=== PATIENT | male | born 1980 | race Caucasian/White ===

== ENCOUNTER 2022-06-16 16:51 | Inpatient (IN) | payer OTHER ==
[~2022-06-16] VITALS: Ht 167.6 cm; Wt 122.3 kg
[2022-06-16] MEDS ORDERED: SODIUM CHLORIDE 0.9% 1,000 ML IV ONE ×2 (17:30→19:15)
[2022-06-16 18:03] LABS: BASOPHILS % 1.1 % (0.0-2.0); EOSINOPHILS % 1.4 % (0.0-5.0); HEMATOCRIT. 43.9 % (42.0-52.0); HEMOGLOBIN. 15.2 g/dL (14.0-18.0); LYMPHOCYTES % 10.4 % (20.0-50.0); MEAN CORPUSCULAR HEMOGLOBIN 35.6 pg (28.0-32.0); MEAN CORPUSCULAR VOLUME 103.1 fL (80.0-94.0); NEUTROPHILS % 75.1 % (40.0-76.0); RED BLOOD CELL COUNT 4.26 mill/uL (4.7-6.1); RED CELL DISTRIBUTION WIDTH 14.6 % (11.6-14.6)
[2022-06-16 18:08] LABS: CHLORIDE 99 mEq/L (98-107)
[2022-06-16 18:18] LABS: ETHANOL BLOOD < 10 mg/dL
[2022-06-16] MEDS ORDERED: PIPERACILLIN/TAZ 3.375G PREMIX 50 ML IV ONE (18:45)
[2022-06-16] MEDS ORDERED: VANCOMYCIN 1G PREMIX 200 ML IV ONE (18:45)
[2022-06-16 19:04] LABS: CLARITY URINE CLEAR (CLEAR); COLOR URINE DARK YELLOW (YELLOW); KETONES URINE NEGATIVE (NEGATIVE); LEUKOCYTE ESTERASE URINE TRACE (NEGATIVE); NITRITE URINE NEGATIVE (NEGATIVE); OCCULT BLOOD URINE NEGATIVE (NEGATIVE); PROTEIN URINE 1+ (NEGATIVE); SPECIFIC GRAVITY URINE 1.017 (1.005-1.030)
[2022-06-16 19:20] LABS: INR 1.6; PARTIAL THROMBOPLASTIN TIME 46.7 sec (23.4-31.0); PROTHROMBIN TIME 16.9 sec (9.6-11.0)
[2022-06-16 19:23] LABS: *AMPHETAMINES SCREEN URINE NEGATIVE (NEGATIVE); *BARBITURATES SCREEN URINE NEGATIVE (NEGATIVE); *BENZODIAZEPINES SCREEN URINE NEGATIVE (NEGATIVE); *COCAINE SCREEN URINE NEGATIVE (NEGATIVE); CANNABINOID URINE SCREEN NEGATIVE (NEGATIVE); METHADONE URINE SCREEN NEGATIVE (NEGATIVE); OPIATES URINE SCREEN NEGATIVE (NEGATIVE); PHENCYCLIDINE URINE SCREEN NEGATIVE (NEGATIVE)
[2022-06-16 20:01] LABS: PLATELET ESTIMATE DECREASED
[2022-06-16 20:02] LABS: MEAN PLATELET VOLUME 10.4 fl (7.4-10.4); PLATELET 70 x1000/uL (130-400)
[2022-06-17] MEDS ORDERED: NITROGLYCERIN 0.4MG TABLET SL SL PRN
[2022-06-17 05:19] LABS: EOSINOPHILS % 2.7 % (0.0-5.0); HEMATOCRIT. 41.6 % (42.0-52.0); HEMOGLOBIN. 14.6 g/dL (14.0-18.0); MEAN CORPUSCULAR HEMOGLOBIN 35.4 pg (28.0-32.0); MEAN CORPUSCULAR VOLUME 101.2 fL (80.0-94.0); MONOCYTES % 14.6 % (2.0-8.0); NEUTROPHILS % 64.7 % (40.0-76.0); RED BLOOD CELL COUNT 4.11 mill/uL (4.7-6.1); RED CELL DISTRIBUTION WIDTH 14.3 % (11.6-14.6)
[2022-06-17 05:25] LABS: CHLORIDE 100 mEq/L (98-107)
[2022-06-17 05:34] LABS: HDL CHOLESTEROL 43 mg/dL (40-59); LDL CHOLESTEROL 72 mg/dL (5-100)
[2022-06-17 08:01] LABS: MEAN PLATELET VOLUME 10.1 fl (7.4-10.4); PLATELET 58 x1000/uL (130-400)
[2022-06-17] MEDS ORDERED: CYCLOBENZAPRINE 10MG TABLET PO PRN (10:30)
[2022-06-17] MEDS: SPIRONOLACTONE 50MG TABLET PO SCH (11:05)
[2022-06-17] MEDS: PANTOPRAZOLE SODIUM 40 MG/VIAL IV SCH (11:05)
[2022-06-17] MEDS: FUROSEMIDE 40MG/4ML VIAL IV SCH (11:06)
[2022-06-17] MEDS: HYDROCODONE/APAP 7.5/325MG 1 TAB TABLET PO PRN ×2 (11:28→22:22)
[2022-06-17 12:00] VITALS: BP 109/57
[2022-06-17] MEDS ORDERED: ONDANSETRON HCL 4MG TABLET PO PRN (12:30)
[2022-06-17] MEDS ORDERED: KETOROLAC 10MG TABLET PO PRN (12:30)
[2022-06-17 12:51] VITALS: BP 121/69
[2022-06-17 16:00] VITALS: BP 97/45
[2022-06-17 16:52] LABS: SODIUM URINE RANDOM 100 mEq/L
[2022-06-17 20:00] VITALS: BP 105/62
[2022-06-18] VITALS: BP 107/78
[2022-06-18 04:00] VITALS: BP 108/72
[2022-06-18 06:34] LABS: BASOPHILS % 1.9 % (0.0-2.0); EOSINOPHILS % 3.3 % (0.0-5.0); HEMATOCRIT. 40.8 % (42.0-52.0); HEMOGLOBIN. 14.4 g/dL (14.0-18.0); LYMPHOCYTES % 16.7 % (20.0-50.0); MEAN CORPUSCULAR HEMOGLOBIN 35.9 pg (28.0-32.0); MEAN CORPUSCULAR VOLUME 101.7 fL (80.0-94.0); MONOCYTES % 16.1 % (2.0-8.0); RED BLOOD CELL COUNT 4.01 mill/uL (4.7-6.1); RED CELL DISTRIBUTION WIDTH 14.4 % (11.6-14.6)
[2022-06-18 07:06] LABS: CHLORIDE 96 mEq/L (98-107)
[2022-06-18 08:00] VITALS: BP 114/71
[2022-06-18] MEDS: PANTOPRAZOLE SODIUM 40 MG/VIAL IV SCH (08:57)
[2022-06-18] MEDS: SPIRONOLACTONE 50MG TABLET PO SCH (09:00)
[2022-06-18 09:22] LABS: MEAN PLATELET VOLUME 9.5 fl (7.4-10.4); PLATELET 53 x1000/uL (130-400)
[2022-06-18] MEDS: HYDROCODONE/APAP 7.5/325MG 1 TAB TABLET PO PRN ×2 (09:26→15:32)
[2022-06-18] MEDS: FUROSEMIDE 40MG/4ML VIAL IV SCH (09:30)
[2022-06-18 12:00] VITALS: BP 93/53
[2022-06-18] MEDS ORDERED: PHYTONADIONE 10MG/ML AMP SUBCUT NR (15:00)
[2022-06-18 16:00] VITALS: BP 98/56
[2022-06-18 17:40] VITALS: BP 98/56
[2022-06-18 18:34] LABS: HEPATITIS B SURFACE ANTIGEN NEGATIVE
== END 2022-06-18 19:45 | disposition home or self-care (01) | DRG 871 ==
LOC: ER 16:51 → MICUSO 20:48 → EDBEDREQTM 21:06 → EDBEDREQ 21:06 → 8WST 06-17 09:24
PROVIDERS: ADMIT Hospitalist; ATTEND Hospitalist
DX: A41.9 Sepsis, unspecified organism (principal); E43 Unspecified severe protein-calorie malnutrition; I21.4 Non-ST elevation (NSTEMI) myocardial infarction; D68.9 Coagulation defect, unspecified; E87.1 Hypo-osmolality and hyponatremia; K76.6 Portal hypertension; K92.0 Hematemesis; Z68.41 Body mass index [BMI] 40.0-44.9, adult; I24.9 Acute ischemic heart disease, unspecified; D69.59 Other secondary thrombocytopenia; E78.00 Pure hypercholesterolemia, unspecified; E87.5 Hyperkalemia; E88.09 Other disorders of plasma-protein metabolism, not elsewhere classified; F10.21 Alcohol dependence, in remission; I07.1 Rheumatic tricuspid insufficiency; I11.0 Hypertensive heart disease with heart failure; I27.20 Pulmonary hypertension, unspecified; I50.9 Heart failure, unspecified; K70.31 Alcoholic cirrhosis of liver with ascites; K80.20 Calculus of gallbladder without cholecystitis without obstruction; N28.9 Disorder of kidney and ureter, unspecified; Z20.822 Contact with and (suspected) exposure to COVID-19; Z79.899 Other long term (current) drug therapy
CPT/HCPCS: 36415; 71045; 76700; 80053; 80061; 80305; 80320; 81003; 82140; 83605; 83880; 83930; 83935; 84300; 84484; 85025; 86705; 86709; 86803; 87340; 87426; 93005; 93306; 99291; C9113; J1940; J2543; J3370; J3430; J7030; G0480